=== PATIENT | male | born 1985 | race Caucasian/White ===

== ENCOUNTER 2017-10-13 18:13 | Emergency (ER) | payer SELFPAY ==
[~2017-10-13] VITALS: Ht 274.3 cm; Wt 5.0 kg
[~2017-10-13 18:13] MED LIST: PROM25SU8 PO; SUCR1TAB6 PO; Z.0.NO CURRENT MEDS
[2017-10-13 18:18] VITALS: BP 166/96; PULSE 71; RESP 20; TEMP 97.3; O2SAT 100
[2017-10-13 19:04] LABS: AUTOMATED NEUTROPHIL # 10.5 TH/MM3 (1.8-7.7); BASOPHIL # 0.1 TH/MM3 (0-0.2); BASOPHIL % 0.6 % (0.0-2.0); EOSINOPHIL # 0.4 TH/MM3 (0-0.4); HEMOGLOBIN 15.5 GM/DL (13.0-17.0); LYMPH % 15.1 % (9.0-44.0); LYMPHOCYTE # 2.1 TH/MM3 (1.0-4.8); MEAN CELL VOLUME 91.4 FL (80.0-100.0); MEAN CORPUSCULAR HEMOGLOBIN 31.5 PG (27.0-34.0); MEAN CORPUSCULAR HGB CONC 34.5 % (32.0-36.0); MEAN PLATELET VOLUME 7.9 FL (7.0-11.0); MONO % 5.4 % (0.0-8.0); MONOCYTE # 0.8 TH/MM3 (0-0.9); NEUT % 75.9 % (16.0-70.0); PLATELET COUNT 284 TH/MM3 (150-450); RED BLOOD COUNT 4.92 MIL/MM3 (4.50-5.90); RED CELL DISTRIBUTION WIDTH 12.9 % (11.6-17.2); WHITE BLOOD COUNT 13.9 TH/MM3 (4.0-11.0)
[2017-10-13 19:10] LABS: CHLORIDE 106 MEQ/L (98-107); SODIUM (NA) 140 MEQ/L (136-145)
[2017-10-13 19:13] LABS: CALCIUM 9.1 MG/DL (8.5-10.1)
[2017-10-13 19:14] LABS: BICARBONATE 27.7 MEQ/L (21.0-32.0); BLOOD UREA NITROGEN 18 MG/DL (7-18); GLUCOSE,RANDOM 118 MG/DL (74-106)
[2017-10-13 19:17] LABS: ALT (GPT) 42 U/L (12-78); AST (GOT) 21 U/L (15-37); GLOMERULAR FILTRATION RATE 70 ML/MIN (>89)
[2017-10-13 19:19] LABS: TOTAL BILIRUBIN ADULT 0.3 MG/DL (0.2-1.0); TOTAL PROTEIN 7.9 GM/DL (6.4-8.2)
[2017-10-13 19:20] LABS: ALKALINE PHOSPHATASE 81 U/L (45-117)
[2017-10-13] MEDS ORDERED: MORPHINE SULFATE 4 MG/ML INJ IV ONE (19:30)
[2017-10-13] MEDS ORDERED: PROCHLORPERAZINE INJ 10 MG/2 ML VIAL IV PUSH ONE (19:30)
[2017-10-13] MEDS ORDERED: diphenhydrAMINE HCL 50 MG/ML VIAL IV PUSH ONE (19:30)
[2017-10-13] MEDS ORDERED: IOHEXOL 350 MG/ML 10 ML VIAL (for RAD DIAG) IVCONTRAST ONE (19:40)
[2017-10-13 20:04] VITALS: BP 150/87; PULSE 70; RESP 16; O2SAT 97
--- NOTE | 2017-10-13 20:16 | RADRPT ---
EXAM DATE: 10/13/2017 7:52 PM EDT AGE/SEX: 32 years / Male INDICATIONS: Right lower abdomen pain with nausea, vomiting and diarrhea for two days. CLINICAL DATA: This is the patient's initial encounter. Patient reports that signs and symptoms have been present for 1 day and indicates a pain score of 6/10. MEDICAL/SURGICAL HISTORY: None. None. ORAL CONTRAST: No oral contrast ingested. RADIATION DOSE: 13.56 CTDI (mGy) COMPARISON: No prior [place] exams available for comparison. TECHNIQUE: Multiple contiguous axial images were obtained through the abdomen and pelvis following b olus infusion of 93 ml Omnipaque 350 (iohexol) nonionic water-soluble contrast as a single exam dos e. No oral contrast ingested. Using automated exposure control and adjustment of the mA and/or kV ac cording to patient size, the radiation dose was kept as low as reasonably achievable to obtain optima l diagnostic quality images. FINDINGS: There is a right-sided obstructive uropathy with moderate right hydronephrosis and perinephric strand ing. There is right ureteral dilatation above and approximately 5 mm x 3.5 mm calculus within the rig ht ureter as it crosses the iliac vessels. No bladder calculi. Lung bases are clear. Mild fatty liver. Spleen, adrenals, left kidney and pancreas unremarkable. No c alcified gallstones. No biliary ductal dilatation. CONCLUSION: 1. Right-sided obstructive uropathy with moderate hydronephrosis and ureteral dilatation above an ap proximately 3.5 mm x 5 mm calculus within the right ureter as it crosses the iliac vessels. 2. The appendix is normal. Electronically signed by: Fabio Swenson MD 10/13/2017 8:15 PM EDT
[2017-10-13] MEDS ORDERED: TAMSULOSIN HCL 0.4 MG CAP PO ONE (20:30)
[2017-10-13] MEDS ORDERED: KETOROLAC TROMETHAMINE 30 MG/ML (IVP) VIAL IV PUSH ONE (20:30)
[2017-10-13] MEDS ORDERED: SODIUM CHLOR 0.9% 1000 ML INJ 1,000 ML IV ONE (20:30)
[2017-10-13] MEDS ORDERED: TAMS5CAP PO (21:03)
[2017-10-13] MEDS ORDERED: PROM25TA10 PO (21:03)
[2017-10-13] MEDS ORDERED: IBUP1TAB7 PO (21:03)
[2017-10-13] MEDS ORDERED: PERC5TAB12 PO (21:03)
--- NOTE | 2017-10-13 21:03 | PD ---
HPI . Abdominal pain Chief Complaint: GI Complaint Time Seen by Provider: 19:16 Travel History International Travel<30 days: No Contact w/Intl Traveler<30days: No Traveled to known affect area: No History of Present Illness HPI Patient presents with the chief complaint of right-sided abdominal pain. Onset was last night. He states that he had a loose stool and his pain went away for a while. However, it has recurred. He describes a knife like stabbing sensation. It has been associated with some emesis. He denies anorexia. Food does not alter his pain in any way. He does report that his pain seems to be aggravated by certain positions. He has not noticed anything making it better. He reports occasional associated diaphoresis. He denies any previous similar history. PFS Past Medical History Medical History: Denies Significant Hx Influenza Vaccination: No Past Surgical History Surgical History: No Previous Surgery Social History Alcohol Use: Yes (WEEKENDS) Tobacco Use: Yes (1.5 PPD) Substance Use: No Allergies-Medications (Allergen,Severity, Reaction): Coded Allergies: No Known Allergies (Verified Adverse Reaction, Unknown, 10/13/17) Reported Meds & Prescriptions Reported Meds & Active Scripts Active Ibuprofen 800 Mg Tab 800 Mg PO Q8H PRN Flomax (Tamsulosin HCl) 0.4 Mg Cap 0.4 Mg PO HS Phenergan (Promethazine HCl) 25 Mg Tablet 25 Mg PO Q6H PRN Percocet (Oxycodone-Acetaminophen) 5-325 mg Tab 1 Tab PO Q4H PRN Review of Systems Except as stated in HPI: all other systems reviewed are Neg General / Constitutional: Positive: Chills Gastrointestinal: Positive: Nausea, Vomiting, Diarrhea, Abdominal Pain Genitourinary: Positive: Flank Pain, No: Urgency, Frequency, Dysuria Physical Exam Narrative GENERAL: I found the patient standing up at the bedside. SKIN: warm/dry. HEAD: Normocephalic. Atraumatic. EYES: Pupils equal and round. No scleral icterus. No injection or drainage. ENT: No nasal bleeding or discharge. Mucous membranes pink and moist. NECK: Trachea midline. Full range of motion without pain.. CARDIOVASCULAR: Regular rate and rhythm. Heart sounds normal. RESPIRATORY: No accessory muscle use. Clear to auscultation. Breath sounds equal bilaterally. GASTROINTESTINAL: Abdomen soft. He has both right CVA tenderness and right lower quadrant tenderness. Bowel sounds present. Nondistended. MUSCULOSKELETAL: No obvious deformities. NEUROLOGICAL: Awake and alert. No obvious cranial nerve deficits. Motor grossly within normal limits. Normal speech. PSYCHIATRIC: Appropriate mood and affect; insight and judgment normal. Data Data Last Documented VS Vital Signs Date Time Temp Pulse Resp B/P (MAP) Pulse Ox O2 Delivery O2 Flow Rate FiO2 10/13/17 21:24 67 119/62 (81) 97 Room Air 10/13/17 20:04 16 10/13/17 18:18 97.3 Orders Orders Complete Blood Count With Diff (10/13/17 18:33) Comprehensive Metabolic Panel (10/13/17 18:33) Lipase (10/13/17 18:33) ^ Saline Lock (10/13/17 18:33) Ct Abd/Pel W Iv Contrast(Rout) (10/13/17 19:20) Urinalysis - C+S If Indicated (10/13/17 19:20) Morphine Inj (Morphine Inj) (10/13/17 19:30) Prochlorperazine Inj (Compazine Inj) (10/13/17 19:30) Diphenhydramine Inj (Benadryl Inj) (10/13/17 19:30) Iohexol 350 Inj (Omnipaque 350 Inj) (10/13/17 19:40) Ketorolac Inj (Toradol Inj) (10/13/17 20:30) Tamsulosin (Flomax) (10/13/17 20:30) Sodium Chlor 0.9% 1000 Ml Inj (Ns 1000 M (10/13/17 20:30) Labs Laboratory Tests Test 10/13/17 18:55 10/13/17 20:55 White Blood Count 13.9 TH/MM3 Red Blood Count 4.92 MIL/MM3 Hemoglobin 15.5 GM/DL Hematocrit 45.0 % Mean Corpuscular Volume 91.4 FL Mean Corpuscular Hemoglobin 31.5 PG Mean Corpuscular Hemoglobin Concent 34.5 % Red Cell Distribution Width 12.9 % Platelet Count 284 TH/MM3 Mean Platelet Volume 7.9 FL Neutrophils (%) (Auto) 75.9 % Lymphocytes (%) (Auto) 15.1 % Monocytes (%) (Auto) 5.4 % Eosinophils (%) (Auto) 3.0 % Basophils (%) (Auto) 0.6 % Neutrophils # (Auto) 10.5 TH/MM3 Lymphocytes # (Auto) 2.1 TH/MM3 Monocytes # (Auto) 0.8 TH/MM3 Eosinophils # (Auto) 0.4 TH/MM3 Basophils # (Auto) 0.1 TH/MM3 CBC Comment DIFF FINAL Differential Comment Blood Urea Nitrogen 18 MG/DL Creatinine 1.20 MG/DL Random Glucose 118 MG/DL Total Protein 7.9 GM/DL Albumin 4.0 GM/DL Calcium Level 9.1 MG/DL Alkaline Phosphatase 81 U/L Aspartate Amino Transf (AST/SGOT) 21 U/L Alanine Aminotransferase (ALT/SGPT) 42 U/L Total Bilirubin 0.3 MG/DL Sodium Level 140 MEQ/L Potassium Level 4.0 MEQ/L Chloride Level 106 MEQ/L Carbon Dioxide Level 27.7 MEQ/L Anion Gap 6 MEQ/L Estimat Glomerular Filtration Rate 70 ML/MIN Lipase 157 U/L Urine Color YELLOW Urine Turbidity CLEAR Urine pH 6.0 Urine Specific Industry 1.010 Urine Protein NEG mg/dL Urine Glucose (UA) NEG mg/dL Urine Ketones NEG mg/dL Urine Occult Blood SMALL Urine Nitrite NEG Urine Bilirubin NEG Urine Urobilinogen 0.2 MG/DL Urine Leukocyte Esterase NEG Urine RBC 10-14 /hpf Urine WBC 0-2 /hpf Urine Squamous Epithelial Cells 0-5 /hpf Urine Bacteria NONE /hpf Microscopic Urinalysis Comment CULT NOT INDICATED MDM Medical Decision Making Medical Screen Exam Complete: Yes Emergency Medical Condition: Yes Differential Diagnosis Differential diagnosis of abdominal pain includes but is not limited to gastritis, pancreatitis, hepatitis, gastroenteritis, constipation, urinary retention, peptic ulcer disease, diverticulitis or appendicitis Narrative Course This patient presents with right-sided abdominal pain. Routine labs and urinalysis were ordered. An IV was started and he was given IV morphine, Compazine and Benadryl. This has improved his pain. CBC & BMP Diagram 10/13/17 18:55 Total Protein 7.9, Albumin 4.0, Calcium Level 9.1, Alkaline Phosphatase 81, Aspartate Amino Transf (AST/SGOT) 21, Alanine Aminotransferase (ALT/SGPT) 42, Total Bilirubin 0.3 Last Impressions Abdomen/Pelvis CT 10/13/17 1920 Signed Impressions: CONCLUSION: 1. Right-sided obstructive uropathy with moderate hydronephrosis and ureteral dilatation above an approximately 3.5 mm x 5 mm calculus within the right urete r as it crosses the iliac vessels. 2. The appendix is normal. Toradol and Flomax have been added to his medication regimen. I am currently awaiting a urinalysis to make sure that he does not have a superimposed urinary tract infection. UA shows red cells but no evidence of infection. He will be discharged home with prescriptions for Percocet, Phenergan and Flomax. E FORCE has been queried and reviewed Diagnosis Primary Impression: Abdominal pain Qualified Codes: R10.31 - Right lower quadrant pain Additional Impression: Kidney stone Patient Instructions: General Instructions, Kidney Stones (DC), Narcotic given in the ED Med/Other Pt SpecificInfo: Prescription(s) given Scripts Ibuprofen (Ibuprofen) 800 Mg Tab 800 MG PO Q8H Y for Pain/Inflammation, #60 TAB 0 Refills Prov: Amber Hyatt MD 10/13/17 Tamsulosin (Flomax) 0.4 Mg Cap 0.4 MG PO HS for Manage Prostate Problems, #30 CAP 0 Refills Prov: Amber Hyatt MD 10/13/17 Promethazine (Phenergan) 25 Mg Tablet 25 MG PO Q6H Y for NAUSEA OR VOMITING, #12 TAB 0 Refills Prov: Amber Hyatt MD 10/13/17 Oxycodone-Acetaminophen (Percocet) 5-325 mg Tab 1 TAB PO Q4H Y for PAIN, #12 TAB 0 Refills Prov: Amber Hyatt MD 10/13/17 Disposition: 01 DISCHARGE HOME Condition: Stable Amber Hyatt MD October 13, 2017 21:03
[2017-10-13 21:09] LABS: BILIRUBIN, URINE NEG (NEG); BLOOD, URINE SMALL (NEG); GLUCOSE,URINE NEG (NEG); KETONE, URINE NEG (NEG); NITRITE,URINE NEG (NEG); URINE COLOR YELLOW (YELLW/STRAW); URINE LEUKOCYTE ESTERASE NEG (NEG)
[2017-10-13 21:21] LABS: SQUAMOUS EPITHELIAL CELL URINE 0-5 /hpf (0-5); WBC, URINE 0-2 /hpf (0-5)
[2017-10-13 21:24] VITALS: BP 119/62; PULSE 67; O2SAT 97
== END 2017-10-13 21:59 | disposition home or self-care (01) ==
LOC: PHED 18:13
DX: R10.31 Right lower quadrant pain (principal); N13.2 Hydronephrosis with renal and ureteral calculous obstruction; F17.200 Nicotine dependence, unspecified, uncomplicated
CPT/HCPCS: 74177; 80053; 81001; 83690; 85025; 96361; 96374; 96375; 99285; J0780; J1200; J1885; J2270; J7030; Q9967